=== PATIENT | male | born 1960 | race Caucasian/White ===

== ENCOUNTER 2018-01-10 17:14 | Emergency (ER) | payer MEDICAID ==
[~2018-01-10] VITALS: Ht 172.7 cm; Wt 97.1 kg
[~2018-01-10 17:14] MED LIST: LEVO200T8 PO
[2018-01-10] MEDS ORDERED: LEVO175T2 PO (18:02)
[2018-01-10] MEDS ORDERED: LEVO200T PO (18:02)
[2018-01-10 18:22] VITALS: BP 134/87
== END 2018-01-10 18:24 | disposition home or self-care (01) ==
LOC: ER 17:14
DX: E03.9 Hypothyroidism, unspecified (principal); Z76.0 Encounter for issue of repeat prescription; Z79.899 Other long term (current) drug therapy
CPT/HCPCS: 99283

== ENCOUNTER 2018-10-06 10:04 | Emergency (ER) | payer MEDICAID, OTHER ==
[~2018-10-06] VITALS: Ht 172.7 cm; Wt 103.9 kg
[~2018-10-06 10:04] MED LIST changes: +LEVO175T2 PO; +LEVO200T PO
[2018-10-06 10:18] VITALS: BP 136/72
[2018-10-06] MEDS ORDERED: LEVO200T8 PO (11:14)
== END 2018-10-06 11:24 | disposition home or self-care (01) ==
LOC: ER 10:04
DX: E03.9 Hypothyroidism, unspecified (principal); Z76.0 Encounter for issue of repeat prescription; Z79.899 Other long term (current) drug therapy
CPT/HCPCS: 99283

== ENCOUNTER 2019-04-15 08:16 | Emergency (ER) | payer MEDICAID, OTHER ==
[~2019-04-15] VITALS: Ht 172.7 cm; Wt 86.3 kg
[2019-04-15 08:19] VITALS: BP 139/68
[2019-04-15] MEDS ORDERED: LEVO200T8 PO (08:35)
--- NOTE | 2019-04-15 08:47 | NUR ---
Pt seen, assessed, and discharged by provider.
== END 2019-04-15 08:59 | disposition home or self-care (01) ==
LOC: ER 08:16
DX: E03.9 Hypothyroidism, unspecified (principal); Z76.0 Encounter for issue of repeat prescription; Z98.890 Other specified postprocedural states; Z79.899 Other long term (current) drug therapy
CPT/HCPCS: 99283